=== PATIENT | male | born 1935 | race Caucasian/White ===

== ENCOUNTER 2022-10-10 10:25 | Emergency (ER) | payer MEDICARE, MEDICAID ==
[~2022-10-10] VITALS: Ht 167.6 cm; Wt 72.0 kg
[2022-10-10 10:29] VITALS: O2SAT 96
[2022-10-10 11:23] LABS: BASOPHILS % 0.5 % (0.0-2.0); EOSINOPHILS % 1.3 % (0.0-5.0); HEMATOCRIT. 38.1 % (42.0-52.0); HEMOGLOBIN. 13.3 g/dL (14.0-18.0); LYMPHOCYTES % 13.2 % (20.0-50.0); MEAN CORPUSCULAR HGB CONC 34.9 g/dL (31.0-37.0); MEAN CORPUSCULAR VOLUME 91.6 fL (80.0-94.0); MEAN PLATELET VOLUME 7.1 fl (7.4-10.4); MONOCYTES % 9.1 % (2.0-8.0); NEUTROPHILS % 75.9 % (40.0-76.0); PLATELET 202 x1000/uL (130-400); RED BLOOD CELL COUNT 4.15 mill/uL (4.7-6.1); RED CELL DISTRIBUTION WIDTH 13.2 % (11.6-14.6); WHITE BLOOD COUNT 7.3 x1000/uL (4.5-11.0)
[2022-10-10 11:28] LABS: CHLORIDE 102 mEq/L (98-107); INDEX HEMOLYSI 1 (1-3); INDEX ICTERIC 1 (1-4); INDEX LIPEMIC 1 (1-3); POTASSIUM 4.3 mEq/L (3.5-5.1); SODIUM 134 mEq/L (136-145)
[2022-10-10 11:58] LABS: ALANINE AMINOTRANSFERASE 23 IU/L (13-61); ALBUMIN 3.8 g/dL (3.4-5.0); ASPARTATE AMINOTRANSFERASE 11 IU/L (15-37); BILIRUBIN TOTAL 0.3 mg/dL (0.1-1.0); CALCIUM 9.4 mg/dL (8.5-10.1); CARBON DIOXIDE 27 mEq/L (21-32); CREATININE 0.7 mg/dL (0.6-1.3); GLUCOSE 144 mg/dL (70-105); PROTEIN TOTAL 7.7 g/dL (6.0-8.3); UREA NITROGEN BLOOD 17 mg/dL (7-21)
[2022-10-10] MEDS ORDERED: METRONIDAZOLE 500 MG PREMIX 100 ML IV ONE (13:00)
[2022-10-10] MEDS ORDERED: SODIUM CHLORIDE 0.9% 1,000 ML IV ONE (13:00)
[2022-10-10] MEDS ORDERED: CEFTRIAXONE SODIUM 1 G/VIAL IM ONE (13:00)
[2022-10-10 15:20] LABS: CLARITY URINE CLEAR (CLEAR); COLOR URINE YELLOW (YELLOW); GLUCOSE URINE NEGATIVE (NEGATIVE); KETONES URINE NEGATIVE (NEGATIVE); LEUKOCYTE ESTERASE URINE NEGATIVE (NEGATIVE); NITRITE URINE NEGATIVE (NEGATIVE); OCCULT BLOOD URINE 2+ (NEGATIVE); PROTEIN URINE NEGATIVE (NEGATIVE); UROBILINOGEN URINE 0.2 E.U./dL (0.2-1.0)
[2022-10-10 15:23] LABS: BACTERIA URINE NONE SEEN; SQUAMOUS EPITHELIAL CELL URINE NONE SEEN /lpf (RARE/1+); WBC URINE 0-2 /hpf (0-2); YEAST URINE NONE SEEN
[2022-10-10] MEDS ORDERED: METRONIDAZOLE 500 MG PREMIX 100 ML IV SCH (18:30)
[2022-10-10 20:00] VITALS: BP 143/68; PULSE 93; RESP 18; TEMP 97.4
[2022-10-10] MEDS ORDERED: CEFTRIAXONE 1GM PREMIX 50 ML IV ONE (20:30)
== END 2022-10-10 21:01 | disposition short-term general hospital (02) ==
LOC: ER 12:08 → CANBEDREQ 15:33 → ER 21:01
DX: C61 Malignant neoplasm of prostate (principal); K57.92 Diverticulitis of intestine, part unspecified, without perforation or abscess without bleeding; N32.89 Other specified disorders of bladder; E11.9 Type 2 diabetes mellitus without complications; E78.00 Pure hypercholesterolemia, unspecified; I10 Essential (primary) hypertension; H40.9 Unspecified glaucoma
CPT/HCPCS: 99285; 74176; 96365; 96367; 80053; 81003; 85025; 36415; J0696; J3490; J7030